=== PATIENT | female | born 1965 | race Caucasian/White ===

== ENCOUNTER 2016-04-05 14:55 | Emergency (ER) | payer OTHER ==
[~2016-04-05] VITALS: Ht 170.2 cm; Wt 60.0 kg
[~2016-04-05 14:55] MED LIST: LORT7.5T3 PO; Z.0.NO CURRENT MEDS
[2016-04-05 14:57] VITALS: BP 126/76; PULSE 116; RESP 16; TEMP 98.1; O2SAT 98
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
== END 2016-04-05 20:15 | disposition home or self-care (01) ==
LOC: NEPB 14:55
DX: M20.012 Mallet finger of left finger(s) (principal); S61.213D Laceration without foreign body of left middle finger without damage to nail, subsequent encounter; F17.200 Nicotine dependence, unspecified, uncomplicated; Z87.448 Personal history of other diseases of urinary system; W25.XXXD Contact with sharp glass, subsequent encounter
CPT/HCPCS: 29130